=== PATIENT | male | born 1955 | race Caucasian/White ===

== ENCOUNTER 2021-09-05 14:45 | Inpatient (IN) | payer OTHER, SELFPAY ==
[2021-09-08 10:11] LABS: Hemoglobin 13.8 g/dL (13.5-17.5); Mean Corpuscular HGB CONC 34.2 g/dL (32.0-36.0); Mean Corpuscular Hemoglobin 30.3 pg (27.0-33.0); Mean Corpuscular Volume 88.4 fl (81.2-95.1); Mean Platelet Volume 10.7 fl (7.4-10.4); Platelet Count 175 10x3/uL (150-450); RBC Distribution Width 12.7 % (11.5-14.5); Red Blood Cell (RBC) Count 4.56 10x6/uL (4.32-5.72); White Blood Cell (WBC) Count 6.8 10x3/uL (3.5-10.5)
[2021-09-08 10:33] LABS: Anion Gap 13 mmol/L (10-20); BUN (Urea Nitrogen) 19 mg/dL (8.4-25.7); Calc. Creatinine Clearance 0 mL/min (70-130); Calcium 9.8 mg/dL (7.8-10.44); Carbon Dioxide 25 mmol/L (23-31); Chloride 108 mmol/L (98-107); Glucose 93 mg/dL (80-115); Potassium 5.2 mmol/L (3.5-5.1); Sodium 141 mmol/L (136-145)
[2021-09-09 12:12] VITALS: BMI 24.3
[2021-09-10] MEDS ORDERED: Dexmedetomidine 200 MCG/2 ML VIAL ONE (07:14)
[2021-09-10] MEDS ORDERED: Midazolam HCl 5 mg/5 ml Vial ONE (07:14)
[2021-09-10] MEDS ORDERED: Fentanyl 250 MCG/5 ML VIAL ONE (07:14)
[2021-09-10] MEDS ORDERED: ceFAZolin 2 GM/DEX 5% 100 ML BAG ONE (09:22)
[2021-09-10] MEDS ORDERED: Midazolam HCl 2 mg/2 ml Vial ONE (09:46)
[2021-09-10] MEDS ORDERED: Ondansetron ODT 4 MG TAB ONE (09:46)
[2021-09-10] MEDS ORDERED: EPINEPHrine 1 MG/ML AMP ONE (09:58)
[2021-09-10] MEDS ORDERED: Dexamethasone 4 mg/ml Vial ONE (09:58)
[2021-09-10] MEDS ORDERED: Albumin 5% 500 ML ONE (09:58)
[2021-09-10] MEDS ORDERED: Bupivacaine PF 0.5% 30 ML VIAL ONE (09:58)
[2021-09-10] MEDS ORDERED: Heparin 10,000 UNITS/1 ML VIAL 30,000 UNITS in Sodium Chloride 0.9% 1,000 ML FS SCH (10:15)
[2021-09-10] MEDS ORDERED: Sodium Chloride 0.9% 40 ML ONE (10:23)
[2021-09-10] MEDS ORDERED: Potassium Chloride 60 MEQ/30 ML VIAL ONE (11:10)
[2021-09-10] MEDS ORDERED: Heparin 5,000 UNITS/ML VIAL ONE (11:10)
[2021-09-10] MEDS ORDERED: Aminocaproic Acid 5 GM/20 ML VIAL ONE (11:10)
[2021-09-10] MEDS ORDERED: Papaverine 60 MG/2 ML VIAL ONE (11:10)
[2021-09-10] MEDS ORDERED: Heparin 30,000 units/30 ml VIAL ONE (11:10)
[2021-09-10] MEDS ORDERED: Calcium Chloride 1 GM/10 ML Abboject SYRINGE ONE (11:10)
[2021-09-10] MEDS ORDERED: Mannitol 12.5 GM/50 ML ONE (11:10)
[2021-09-10] MEDS ORDERED: Lidocaine 1% PF 5 ML VIAL ONE (11:10)
[2021-09-10] MEDS ORDERED: Norepinephrine 4 MG/4 ML VIAL ONE (11:10)
[2021-09-10] MEDS ORDERED: Lidocaine 2% PF 100 mg/5 ml Syringe ONE (11:10)
[2021-09-10] MEDS ORDERED: Vecuronium 10 MG VIAL ONE (11:10)
[2021-09-10] MEDS ORDERED: Ondansetron PF 4 MG/2 ML Vial ONE (11:10)
[2021-09-10] MEDS ORDERED: Nitroglycerin 50 MG/250 ML BOT ONE (11:10)
[2021-09-10] MEDS ORDERED: Magnesium Sulfate 1 GM/2 ML VIAL ONE (11:10)
[2021-09-10] MEDS ORDERED: Sodium Bicarb 50 MEQ/50 ML Abboject 8.4% SYRINGE ONE (11:10)
[2021-09-10] MEDS ORDERED: Protamine Sulfate 250 MG/25 ML VIAL ONE (11:10)
[2021-09-10] MEDS ORDERED: Glycopyrrolate 0.2 MG/ML 5 ML SYRINGE ONE ×2 (11:10)
[2021-09-10] MEDS ORDERED: PROPOFOL 200 MG/20 ML VIAL ONE (11:10)
[2021-09-10] MEDS ORDERED: Thrombin 5000 UNITS/5 ML VIAL ONE (11:10)
[2021-09-10] MEDS ORDERED: Dexamethasone 20 MG/5 ML VIAL ONE (11:10)
[2021-09-10] MEDS ORDERED: Cardioplegic Soln 1,000 ML BAG ONE (11:10)
[2021-09-10] MEDS ORDERED: hydrALAZINE 20 MG/ML VIAL SLOW IVP PRN ×2 (13:52→15:25)
[2021-09-10] MEDS ORDERED: Guaifenesin DM 100-10/5 ML UDCUP PO PRN ×2 (13:52→15:25)
[2021-09-10] MEDS ORDERED: Potassium Chloride 20 MEQ/100 ML PREMIX BAG IVPB PRN ×2 (13:52→15:27)
[2021-09-10] MEDS ORDERED: Ondansetron PF 4 MG/2 ML Vial IVP PRN ×2 (13:52→15:27)
[2021-09-10] MEDS ORDERED: Nitroglycerin 50 MG/250 ML BOT 250 ML IVPB PRN ×2 (13:52→15:26)
[2021-09-10] MEDS ORDERED: Mag-Al 1200 mg/1200 mg/30 ML UDCUP PO PRN ×2 (13:52→15:20)
[2021-09-10] MEDS ORDERED: Phenylephrine 40 MG in Sodium Chloride 0.9% 250 ML 250 ML IVPB PRN ×2 (13:52→15:28)
[2021-09-10] MEDS ORDERED: traMADol HCl 50 MG TAB PO PRN ×4 (13:52→15:29)
[2021-09-10] MEDS ORDERED: Hetastarch 6% 500 ML 500 ML IVPB PRN ×2 (13:52→15:25)
[2021-09-10] MEDS ORDERED: Promethazine HCl 25 MG/ML VIAL IM PRN ×2 (13:52→15:28)
[2021-09-10] MEDS ORDERED: HYDROcodone/Acetaminophen 5/325 mg Tablet PO PRN ×4 (13:52→15:25)
[2021-09-10] MEDS ORDERED: Bisacodyl 10 MG SUPP PR PRN ×2 (13:52→15:21)
[2021-09-10] MEDS ORDERED: Bisacodyl 5 MG TAB PO PRN ×2 (13:52→15:21)
[2021-09-10] MEDS ORDERED: Fentanyl 100 MCG/2 ML VIAL SLOW IVP PRN ×4 (13:52→15:24)
[2021-09-10] MEDS ORDERED: Acetaminophen 325 MG TAB PO PRN ×2 (13:52→15:04)
[2021-09-10] MEDS ORDERED: Morphine 2 MG/ML VIAL SLOW IVP PRN ×2 (13:52→15:26)
[2021-09-10] MEDS ORDERED: Morphine 4 MG/ML VIAL ONE (14:30)
[2021-09-10] MEDS: Ketorolac Tromethamine 30 MG/ML VIAL IVP SCH ×2 (14:54→21:43)
[2021-09-10 14:57] LABS: #Eosinphils 0.2 thou/uL (0.0-0.7); #Lymphocytes 1.1 thou/uL (1.20-3.40); #Monocytes 0.3 thou/uL (0.11-0.59); #Neutrophils 9.2 thou/uL (1.40-6.50); %Basophils 0.2 % (0.0-1.0); %Eosinophils 1.9 % (0.0-10.0); %Lymphocytes 9.9 % (21.0-51.0); %Monocytes 2.6 % (0.0-10.0); %Neutrophils 85.4 % (42.0-75.0); Hemoglobin 12.9 g/dL (14.0-18.0); Mean Corpuscular HGB CONC 33.4 g/dL (32.0-36.0); Mean Corpuscular Hemoglobin 30.4 pg (27.0-31.0); Mean Corpuscular Volume 90.8 fL (78.0-98.0); Platelet Count 139 thou/uL (130-400); RBC Distribution Width 11.9 % (11.5-14.5); Red Blood Cell (RBC) Count 4.26 mill/uL (4.70-6.10); White Blood Cell (WBC) Count 10.7 thou/uL (4.8-10.8)
[2021-09-10] MEDS ORDERED: Magnesium 2 GM/50 ML 2 GM in Premix Bag 1 BAG IVPB SCH ×2 (15:00→16:00)
[2021-09-10 15:08] LABS: INR-International Normal Ratio 1.2; Prothrombin Time 14.9 sec (12.0-14.7)
[2021-09-10 15:09] LABS: PTT 86.3 sec (22.9-36.1)
[2021-09-10 15:10] LABS: Anion Gap 11 mmol/L (10-20); BUN (Urea Nitrogen) 12 mg/dL (8.4-25.7); Calc. Creatinine Clearance 97 mL/min (70-130); Calcium 7.8 mg/dL (7.8-10.44); Carbon Dioxide 19 mmol/L (23-31); Chloride 113 mmol/L (98-107); Glucose 140 mg/dL (80-115); Potassium 4.1 mmol/L (3.5-5.1); Sodium 139 mmol/L (136-145)
[2021-09-10] MEDS ORDERED: Propofol 1,000 MG/100 ML VIAL IV ONE (15:23)
[2021-09-10] MEDS: D5 1/2 NS w/20 mEq KCL 1,000 ML IV SCH ×2 (15:26→15:38)
[2021-09-10] MEDS ORDERED: D5 1/2 NS w/20 mEq KCL 1,000 ML IV SCH (16:00)
[2021-09-10] MEDS: Magnesium 2 GM/50 ML 2 GM in Premix Bag 1 BAG IVPB SCH (16:23)
[2021-09-10] MEDS: ceFAZolin Sodium/D5W 2 GM in Premix Bag 1 BAG IVPB SCH (18:38)
[2021-09-10] MEDS ORDERED: ceFAZolin Sodium/D5W 2 GM in Premix Bag 1 BAG IVPB SCH (19:00)
[2021-09-10 20:27] LABS: Hemoglobin 13.3 g/dL (14.0-18.0)
[2021-09-10 20:41] LABS: Potassium 4.5 mmol/L (3.5-5.1)
[2021-09-10] MEDS ORDERED: Famotidine/PF 20 mg/2ml Vial SLOW IVP SCH ×2 (21:00)
[2021-09-11] MEDS ORDERED: Phenylephrine 40 MG/NS 250 ML 250 ML IVPB PRN (01:00)
[2021-09-11] MEDS: Ketorolac Tromethamine 30 MG/ML VIAL IVP SCH ×4 (03:46→20:04)
[2021-09-11] MEDS: ceFAZolin Sodium/D5W 2 GM in Premix Bag 1 BAG IVPB SCH ×2 (03:47→13:09)
[2021-09-11 04:31] LABS: #Lymphocytes 0.7 thou/uL (1.20-3.40); #Monocytes 0.7 thou/uL (0.11-0.59); #Neutrophils 10.8 thou/uL (1.40-6.50); %Eosinophils 0.2 % (0.0-10.0); %Lymphocytes 5.4 % (21.0-51.0); %Monocytes 6.1 % (0.0-10.0); %Neutrophils 88.4 % (42.0-75.0); Hemoglobin 10.8 g/dL (14.0-18.0); Mean Corpuscular HGB CONC 34.6 g/dL (32.0-36.0); Mean Corpuscular Hemoglobin 31.1 pg (27.0-31.0); Mean Platelet Volume 8.7 fL (7.4-10.4); Platelet Count 157 thou/uL (130-400); RBC Distribution Width 11.8 % (11.5-14.5); Red Blood Cell (RBC) Count 3.46 mill/uL (4.70-6.10); White Blood Cell (WBC) Count 12.2 thou/uL (4.8-10.8)
[2021-09-11 04:45] LABS: Anion Gap 11 mmol/L (10-20); BUN (Urea Nitrogen) 16 mg/dL (8.4-25.7); Calc. Creatinine Clearance 88 mL/min (70-130); Calcium 7.6 mg/dL (7.8-10.44); Carbon Dioxide 21 mmol/L (23-31); Chloride 112 mmol/L (98-107); Glucose 150 mg/dL (80-115); Potassium 4.7 mmol/L (3.5-5.1); Sodium 139 mmol/L (136-145)
[2021-09-11] MEDS ORDERED: Calcium Chloride 1 GM/10 ML Abboject SYRINGE ONE (06:07)
[2021-09-11] MEDS ORDERED: Calcium Chloride 13.6 MEQ in Sodium Chloride 0.9% 100 ML IVPB SCH (06:15)
[2021-09-11] MEDS ORDERED: Aspirin 325 MG TAB PO SCH ×2 (09:00)
[2021-09-11] MEDS ORDERED: Magnesium 2 GM/50 ML 2 GM in Premix Bag 1 BAG IVPB SCH (09:00)
[2021-09-11] MEDS ORDERED: Atorvastatin Calcium 40 MG TAB PO SCH (09:00)
[2021-09-11] MEDS: Magnesium 2 GM/50 ML 2 GM in Premix Bag 1 BAG IVPB SCH (09:57)
[2021-09-11] MEDS: Atorvastatin Calcium 40 MG TAB PO SCH (09:58)
[2021-09-11] MEDS ORDERED: Nitroglycerin 0.4 MG TAB (25 Tab Bottle) SL PRN (14:07)
[2021-09-11] MEDS ORDERED: Bisacodyl 5 MG TAB PO PRN (14:07)
[2021-09-11] MEDS ORDERED: Bisacodyl 10 MG SUPP PR PRN (14:07)
[2021-09-11] MEDS ORDERED: diphenhydrAMINE 25 MG CAP PO PRN (14:07)
[2021-09-11] MEDS ORDERED: Mag-Al 1200 mg/1200 mg/30 ML UDCUP PO PRN (14:07)
[2021-09-11] MEDS ORDERED: Mineral Oil ENEMA PR PRN (14:07)
[2021-09-11] MEDS ORDERED: Guaifenesin DM 100-10/5 ML UDCUP PO PRN (14:07)
[2021-09-11] MEDS ORDERED: Zolpidem Tartrate 5 MG TAB PO PRN (14:07)
[2021-09-11] MEDS ORDERED: Milk Of Magnesia 30 ML UDCUP PO PRN (14:07)
[2021-09-12] MEDS: Ketorolac Tromethamine 30 MG/ML VIAL IVP SCH ×4 (03:16→21:47)
[2021-09-12] MEDS: Atorvastatin Calcium 40 MG TAB PO SCH (08:07)
[2021-09-12] MEDS: Aspirin 325 mg Enteric Coated Tablet PO SCH (08:07)
[2021-09-12] MEDS: Magnesium 2 GM/50 ML 2 GM in Premix Bag 1 BAG IVPB SCH (08:09)
[2021-09-13] MEDS: Ketorolac Tromethamine 30 MG/ML VIAL IVP SCH ×2 (03:49→09:32)
[2021-09-13 08:10] VITALS: TEMP 99
[2021-09-13] MEDS ORDERED: Lisinopril 2.5 MG TAB PO SCH (09:00)
[2021-09-13] MEDS: Atorvastatin Calcium 40 MG TAB PO SCH (09:32)
[2021-09-13] MEDS: Aspirin 325 mg Enteric Coated Tablet PO SCH (09:32)
[2021-09-13 12:52] VITALS: BP 158/89
== END 2021-09-13 15:18 | disposition home or self-care (01) | DRG 236 ==
LOC: 2NO 09-10 09:06 → CCU 09-10 14:17 → 2NO 09-13 00:36
PROVIDERS: ADMIT Thoracic Surgery (Cardiothoracic Vascular Surgery); ATTEND Thoracic Surgery (Cardiothoracic Vascular Surgery)
PROC: 021109W Bypass Coronary Artery, Two Arteries from Aorta with Autologous Venous Tissue, Open Approach (ICD-10-PCS; principal; 2021-09-10)
PROC: 06BQ4ZZ Excision of Left Saphenous Vein, Percutaneous Endoscopic Approach (ICD-10-PCS; 2021-09-10)
PROC: 5A1221Z Performance of Cardiac Output, Continuous (ICD-10-PCS; 2021-09-10)
DX: I25.110 Atherosclerotic heart disease of native coronary artery with unstable angina pectoris (principal); Z20.822 Contact with and (suspected) exposure to COVID-19; E78.5 Hyperlipidemia, unspecified; I10 Essential (primary) hypertension; E78.00 Pure hypercholesterolemia, unspecified; R00.1 Bradycardia, unspecified; Z79.899 Other long term (current) drug therapy; Z79.82 Long term (current) use of aspirin; Z87.891 Personal history of nicotine dependence; Z82.49 Family history of ischemic heart disease and other diseases of the circulatory system
CPT/HCPCS: 36416; 36430; 71045; 80048; 85025; 85027; 85610; 85730; 86850; 86900; 86901; 93005; 93010; 93798; J0171; J1100; J1642; J1644; J1885; J2001; J2150; J2250; J2270; J2405; J2440; J2704; J2720; J3010; J3370; J3475; J3480; J3490; P9045; Q0162; S0017; S0020; S0028

== ENCOUNTER 2021-09-08 08:10 | Outpatient (CLI) | payer SELFPAY ==
[2021-09-08 19:04] LABS: SARS-CoV-2 PCR by NAA Not Detected (NotDetected)
== END 2021-09-08 08:11 | disposition home or self-care (01) ==
LOC: LABBT 08:10
PROVIDERS: ATTEND Thoracic Surgery (Cardiothoracic Vascular Surgery)
DX: Z01.818 Encounter for other preprocedural examination (principal); I25.10 Atherosclerotic heart disease of native coronary artery without angina pectoris; Z20.822 Contact with and (suspected) exposure to COVID-19
CPT/HCPCS: 71046; 80048; 85027; 86850; 86900; 86901; 93005; 93010; U0003; U0005